=== PATIENT | male | born 2000 | race Caucasian/White ===

== ENCOUNTER 2018-12-23 09:45 | Inpatient (IN) | payer BC ==
[~2018-12-23] VITALS: Ht 180.3 cm; Wt 70.5 kg
[2018-12-23] MEDS ORDERED: AMOXICILLIN500 M1 PO (10:05)
[2018-12-23] MEDS ORDERED: FOLIC ACID0.8 MG PO (10:06)
[2018-12-23 10:41] LABS: BASOPHILS 0.3 % (0-2); EOSINOPHILS 0.9 % (0-7); HEMATOCRIT 39.7 % (42.0-54.0); HEMOGLOBIN 14.1 g/dL (13.5-17.5); IMMATURE GRANULOCYTES 0.3 % (0-5); LYMPHOCYTES 19.7 % (15-50); MCHC 35.5 g/dL (31.0-37.0); MCV 90.2 fL (80.0-100.0); MEAN PLATELET VOLUME 9.2 fL (7.4-10.4); MONOCYTES 5.7 % (2-11); NEUTROPHILS 73.1 % (40-80); PLATELET COUNT 175 10x3/uL (130-400); WBC 7.8 10x3/uL (4.8-10.8)
[2018-12-23 11:00] LABS: ALBUMIN 4.3 g/dL (3.4-5.0); ALKALINE PHOSPHATASE 49 U/L (46-116); ALT (SGPT) 10 U/L (10-68); AMYLASE - SERUM 45 U/L (25-115); BILIRUBIN - TOTAL 5.04 mg/dL (0.2-1.3); CALC OSMOLALITY 283 mosm/kg (275-300); CALCIUM 8.4 mg/dL (8.5-10.1); CARBON DIOXIDE 25.6 mmol/L (21.0-32.0); CHLORIDE - SERUM 104 mmol/L (98-107); CREATININE - SERUM 0.8 mg/dL (0.6-1.3); GLUCOSE 132 mg/dL (74-106); LIPASE 106 U/L (73-393); POTASSIUM - SERUM 3.7 mmol/L (3.5-5.1); SODIUM 141 mmol/L (136-145); UREA NITROGEN 14 mg/dL (7-18); eGFR NON AFRICAN AMERICAN > 90 mL/min (90-120)
[2018-12-23 11:03] LABS: APPEARANCE CLEAR (CLEAR); BILIRUBIN 1+ (NEGATIVE); COLOR DK YELLOW (YELLOW); GLUCOSE NEGATIVE (NEGATIVE); KETONE NEGATIVE (NEGATIVE); NITRITE NEGATIVE (NEGATIVE); PROTEIN NEGATIVE (NEGATIVE)
[2018-12-23 11:05] LABS: BACTERIA NONE SEEN /hpf (NONE SEEN); EPITHELIAL CELLS RARE /hpf (0-5); RED CELLS - URINE RARE /hpf (0-5); WHITE CELLS - URINE RARE /hpf (0-5)
--- NOTE | 2018-12-23 13:17 | NUR ---
RECEIVED REPORT FROM GONZALEZ RUEDA IN ER AT 1245. ARRIVED TO ROOM AT 1315. ASSUMED CARE. PATIENT'S FATHER STATED, "HE WON'T SIGN THE CONSENT FOR SURGERY BECAUSE IT ONLY SAY APPENDECTOMY. HE WON'T HAVE THAT DONE UNLESS THEY DO THE SPLENECTOMY AT THE SAME TIME."
[2018-12-23] MEDS ORDERED: HYDROCODON-ACE1 EAC7 PO (15:50)
[2018-12-23 16:39] VITALS: BP 138/46
[2018-12-23 16:41] VITALS: BP 132/69
[2018-12-23 20:03] VITALS: Ht 180.3 cm; Wt 70.5 kg
--- NOTE | 2018-12-23 20:19 | NUR ---
REMOVED IV IN RIGHT AC WITH CATHETER TIP INTACT.
--- NOTE | 2018-12-23 20:19 | NUR ---
DISCHARGE INSTRUCTIONS GIVEN. PRESCRIPTION FOR PAIN MED GIVEN.
--- NOTE | 2018-12-23 20:38 | NUR ---
PT ESCORTED TO MAIN ENTRANCE VIA WHEELCHAIR. ASSISTED INTO AWAITING VEHICLE.
--- NOTE | 2018-12-28 17:04 | MORECARE ---
CASE MANAGEMENT DISCHARGE SUMMARY PATIENT: PABLO BONILLA UNIT: [id number] ADM DATE: 12/23/18 AGE: 18 : 98 SEX: M ROOM/BED: D.2230 AUTHOR: ROBBIE ORTIZ PHYSICIAN: REFERRING PHYSICIAN: RONAK GABRIEL MD DATE OF SERVICE: 12/28/18 Discharge Plan Patient Name: PABLO BONILLA [facility] [facility] 2000 Planned Disposition: Anticipated Discharge Date: Discharge Date: 12/23/2018 Expected LOS: 0 Initial Reviewer: [email or web address] Initial Review Date: 12/28/2018 Generated: 12/28/18 6:04 pm Patient Name: PABLO BONILLA Page [id number] at 1704 All edits/amendments must be made on the electronic document DICTATION DATE: 12/28/181702 SURVEILLANCE SYSTEMS ENGINEER: TACOS 12/28/181702 RPT#: [id number] DC DATE:12/23/18 STATUS: DIS IN [facility] [address] [place] [address] END OF REPORT
== END 2018-12-23 20:38 | disposition home or self-care (01) | DRG 343 ==
LOC: D.ER 09:45 → D.MS 11:20 → D.EDHOLD 11:20 → D.MS 11:40
PROVIDERS: Family Medicine; Surgery; ADMIT Family Medicine
PROC: 0DTJ4ZZ Resection of Appendix, Percutaneous Endoscopic Approach (ICD-10-PCS; principal; 2018-12-23 15:00)
DX: K35.30 Acute appendicitis with localized peritonitis, without perforation or gangrene (principal); D58.0 Hereditary spherocytosis; R16.1 Splenomegaly, not elsewhere classified

== ENCOUNTER 2019-01-09 12:33 | Emergency (ER) | payer BC ==
[~2019-01-09] VITALS: Ht 180.3 cm; Wt 63.5 kg
[~2019-01-09 12:33] MED LIST: AMOXICILLIN500 M1 PO; FOLIC ACID0.8 MG PO; HYDROCODON-ACE1 EAC7 PO
[2019-01-09 12:43] VITALS: Ht 180.3 cm; Wt 63.5 kg
[2019-01-09 13:19] LABS: ALBUMIN 4.4 g/dL (3.4-5.0); ALKALINE PHOSPHATASE 45 U/L (46-116); ALT (SGPT) 12 U/L (10-68); BASOPHILS 0.4 % (0-2); BILIRUBIN - TOTAL 2.85 mg/dL (0.2-1.3); CALC OSMOLALITY 276 mosm/kg (275-300); CALCIUM 8.8 mg/dL (8.5-10.1); CARBON DIOXIDE 27.3 mmol/L (21.0-32.0); CHLORIDE - SERUM 104 mmol/L (98-107); CREATININE - SERUM 0.8 mg/dL (0.6-1.3); EOSINOPHILS 0.9 % (0-7); GLUCOSE 89 mg/dL (74-106); HEMOGLOBIN 13.5 g/dL (13.5-17.5); IMMATURE GRANULOCYTES 0.4 % (0-5); LYMPHOCYTES 19.8 % (15-50); MCH 31.1 pg (26.0-34.0); MCHC 34.6 g/dL (31.0-37.0); MCV 89.9 fL (80.0-100.0); MEAN PLATELET VOLUME 9.2 fL (7.4-10.4); MONOCYTES 4.7 % (2-11); NEUTROPHILS 73.8 % (40-80); POTASSIUM - SERUM 3.6 mmol/L (3.5-5.1); PROTEIN - SERUM 7.2 g/dL (6.4-8.2); RBC 4.34 10x6/uL (4.20-6.10); RDW 18.9 % (11.5-14.5); SODIUM 139 mmol/L (136-145); UREA NITROGEN 12 mg/dL (7-18); WBC 7.4 10x3/uL (4.8-10.8); eGFR NON AFRICAN AMERICAN > 90 mL/min (90-120)
[2019-01-09 13:33] LABS: PLATELET COUNT 222 10x3/uL (130-400)
[2019-01-09 17:33] LABS: APPEARANCE CLEAR (CLEAR); BILIRUBIN NEGATIVE (NEGATIVE); COLOR YELLOW (YELLOW); GLUCOSE NEGATIVE (NEGATIVE); KETONE NEGATIVE (NEGATIVE); NITRITE NEGATIVE (NEGATIVE); PROTEIN NEGATIVE (NEGATIVE); SPECIFIC GRAVITY 1.015 (1.005-1.020); UROBILINOGEN NORMAL (NORMAL)
[2019-01-09 18:44] VITALS: BP 124/60
== END 2019-01-09 18:34 | disposition home or self-care (01) ==
LOC: D.ER 12:33
PROVIDERS: Family Medicine
DX: R10.9 Unspecified abdominal pain (principal); D58.0 Hereditary spherocytosis; Z98.890 Other specified postprocedural states

== ENCOUNTER 2019-02-06 07:13 | Inpatient (IN) | payer BC ==
[~2019-02-06] VITALS: Ht 177.8 cm; Wt 60.0 kg
[~2019-02-06 07:13] MED LIST changes: +IBUPROFEN400 MG PO
[2019-02-06 08:08] VITALS: BP 120/67; BMI 20.4
[2019-02-06 17:00] VITALS: BP 138/68
[2019-02-06 17:38] VITALS: BP 134/88; Ht 177.8 cm; Wt 60.0 kg
[2019-02-06 18:00] VITALS: BP 134/88; BP 138/82
[2019-02-06 19:00] VITALS: BP 136/80
[2019-02-06 23:00] VITALS: BP 140/70
[2019-02-07] VITALS (7 sets, daily range): BP systolic 115–134; BP diastolic 62–88
[2019-02-07 05:22] LABS: HEMATOCRIT 41.3 % (42.0-54.0); HEMOGLOBIN 13.9 g/dL (13.5-17.5); MCH 31.2 pg (26.0-34.0); MCHC 33.7 g/dL (31.0-37.0); MCV 92.6 fL (80.0-100.0); MEAN PLATELET VOLUME 10.2 fL (7.4-10.4); PLATELET COUNT 253 10x3/uL (130-400); RBC 4.46 10x6/uL (4.20-6.10); WBC 20.7 10x3/uL (4.8-10.8)
[2019-02-07 06:26] LABS: ALBUMIN 3.5 g/dL (3.4-5.0); ALKALINE PHOSPHATASE 36 U/L (46-116); ALT (SGPT) 43 U/L (10-68); BILIRUBIN - TOTAL 3.01 mg/dL (0.2-1.3); CALC OSMOLALITY 281 mosm/kg (275-300); CALCIUM 8.1 mg/dL (8.5-10.1); CHLORIDE - SERUM 104 mmol/L (98-107); CREATININE - SERUM 0.7 mg/dL (0.6-1.3); GLUCOSE 132 mg/dL (74-106); MAGNESIUM - SERUM 1.4 mg/dL (1.8-2.4); PHOSPHOROUS 3.8 mg/dL (2.5-4.9); POTASSIUM - SERUM 3.5 mmol/L (3.5-5.1); PROTEIN - SERUM 6.1 g/dL (6.4-8.2); SODIUM 141 mmol/L (136-145); UREA NITROGEN 10 mg/dL (7-18); eGFR NON AFRICAN AMERICAN > 90 mL/min (90-120)
[2019-02-07 10:20] LABS: LYMPHOCYTES 2 % (15-50); MONOCYTES 3 % (2-11); NEUTROPHILS 82 % (40-80); PLATELET ESTIMATE NORMAL
[2019-02-08 05:00] VITALS: BP 110/63
[2019-02-08 09:02] LABS: BASOPHILS 0.1 % (0-2); EOSINOPHILS 0.2 % (0-7); HEMATOCRIT 37.5 % (42.0-54.0); HEMOGLOBIN 12.6 g/dL (13.5-17.5); IMMATURE GRANULOCYTES 0.2 % (0-5); LYMPHOCYTES 3.1 % (15-50); MCH 31.7 pg (26.0-34.0); MCHC 33.6 g/dL (31.0-37.0); MCV 94.2 fL (80.0-100.0); MEAN PLATELET VOLUME 9.5 fL (7.4-10.4); MONOCYTES 12.3 % (2-11); NEUTROPHILS 84.1 % (40-80); RBC 3.98 10x6/uL (4.20-6.10); RDW 18.8 % (11.5-14.5); WBC 17.3 10x3/uL (4.8-10.8)
[2019-02-08 09:05] LABS: PLATELET COUNT 319 10x3/uL (130-400)
[2019-02-08 09:11] LABS: CALC OSMOLALITY 277 mosm/kg (275-300); CALCIUM 8.8 mg/dL (8.5-10.1); CARBON DIOXIDE 29.5 mmol/L (21.0-32.0); CHLORIDE - SERUM 104 mmol/L (98-107); CREATININE - SERUM 0.8 mg/dL (0.6-1.3); GLUCOSE 101 mg/dL (74-106); POTASSIUM - SERUM 3.7 mmol/L (3.5-5.1); SODIUM 139 mmol/L (136-145); UREA NITROGEN 12 mg/dL (7-18); eGFR NON AFRICAN AMERICAN > 90 mL/min (90-120)
[2019-02-08 09:12] VITALS: BP 121/55
[2019-02-08 12:53] VITALS: BP 127/74
[2019-02-08 18:22] VITALS: BP 130/76
[2019-02-08 20:00] VITALS: BP 133/79
[2019-02-09] VITALS: BP 125/68
[2019-02-09 05:00] VITALS: BP 128/79
[2019-02-09 08:00] VITALS: BP 130/72
[2019-02-09] MEDS ORDERED: HYDROCODON-ACE1 EAC7 PO (10:10)
--- NOTE | 2019-02-09 15:54 | MORECARE ---
CASE MANAGEMENT DISCHARGE SUMMARY PATIENT: PABLO BONILLA UNIT: [id number] ADM DATE: 02/06/19 AGE: 18 : [birth year] SEX: M ROOM/BED: D.1201 AUTHOR: ANGEL,DOC PHYSICIAN: REFERRING PHYSICIAN: RILEY ALDRIDGE MD DATE OF SERVICE: 02/09/19 Discharge Plan Patient Name: PABLO BONILLA Facility: [facility]:[place] : 2000 Planned Disposition: Home Anticipated Discharge Date: 02/09/19 Discharge Date: Expected LOS: 3 Initial Reviewer: [email or web address] Initial Review Date: 02/09/2019 Generated: 02/09/19 4:54 pm Comments DCP- Discharge Planning Updated by [email or web address]: Esperanza Obregon on 02/09/19 2:[address] Patient Name: PABLO BONILLA Admission Status: Elective Accout number: [id number] Admission Date: 02-06-2019 : 2000 Admission Diagnosis: Attending: RILEY ALDRIDGE Current LOS: 3 Anticipated DC Date: 02-09-2019 Planned Disposition: Home Primary Insurance: [employer] OUT OF STATE Discharge Planning Comments: AFTER OBTAINING CONSENT, CM MET WITH PATIENT WHILE FEMALE VISITOR IN ROOM. PATIENT STATES HIS PLAN IS TO DISCHARGE TO HIS S HOUSE, [place], . STATES HOME ENVIRONMENT IS SAFE. DENIES ANY DISCHARGE PLANNING / NEEDS. STATES HIS UNCLE WILL TRANSPORT HIM HOME. CM WILL CONTINUE TO FOLLOW AND ASSIST NEEDED WITH DISCHARGE PLANNING / NEEDS. Trout Farmer: Esperanza Obregon DCPIA - Discharge Planning Initial Assessment Updated by [email or web address]: Esperanza Obregon on 02/09/19 3:49 pm * Is the patient Alert and Oriented? Yes * How many steps to enter\\exit or inside your home? "FEW" * PCP MARYELLEN TIJERINA * Pharmacy [facility] * Preadmission Environment Home with Family * ADLs Independent * Equipment None * List name and contact numbers for known caregivers / representatives who currently or will assist patient after discharge: UNCLE AGUERO, * Verbal permission to speak to the caregivers and representatives has been obtained from the patient. Yes * Community resources currently utilized None * Additional services required to return to the preadmission environment? No * Can the patient safely return to the preadmission environment? Yes * Has this patient been hospitalized within the prior 30 days at any hospital? No Patient Name: PABLO BONILLA Page [phone] at 1554 All edits/amendments must be made on the electronic document DICTATION DATE: 02/09/191552 FURNACE UTILITY OPERATOR: TACOS 02/09/191552 RPT#: [id number] DC DATE: STATUS: ADM IN [facility] [address] [place] [address] END OF REPORT
--- NOTE | 2019-02-10 13:04 | MORECARE ---
CASE MANAGEMENT DISCHARGE SUMMARY PATIENT: PABLO BONILLA UNIT: [id number] ADM DATE: 02/06/19 AGE: 18 : [birth year] SEX: M ROOM/BED: D.1201 AUTHOR: ANGEL,DOC PHYSICIAN: REFERRING PHYSICIAN: RILEY ALDRIDGE MD DATE OF SERVICE: 02/10/19 Discharge Plan Patient Name: PABLO BONILLA Facility: [facility]:[place] : 2000 Planned Disposition: Home Anticipated Discharge Date: 02/09/19 Discharge Date: 02/09/2019 Expected LOS: 3 Initial Reviewer: [email or web address] Initial Review Date: 02/09/2019 Generated: 02/10/19 2:04 pm Comments DCP- Discharge Planning Updated by [email or web address]: Esperanza Obregon on 02/09/19 2:[address] Patient Name: PABLO BONILLA Admission Status: Elective Accout number: [id number] Admission Date: 02-06-2019 : 2000 Admission Diagnosis: Attending: RILEY ALDRIDGE Current LOS: 3 Anticipated DC Date: 02-09-2019 Planned Disposition: Home Primary Insurance: [employer] OUT OF STATE Discharge Planning Comments: AFTER OBTAINING CONSENT, CM MET WITH PATIENT WHILE FEMALE VISITOR IN ROOM. PATIENT STATES HIS PLAN IS TO DISCHARGE TO HIS S HOUSE, [place], . STATES HOME ENVIRONMENT IS SAFE. DENIES ANY DISCHARGE PLANNING / NEEDS. STATES HIS UNCLE WILL TRANSPORT HIM HOME. CM WILL CONTINUE TO FOLLOW AND ASSIST NEEDED WITH DISCHARGE PLANNING / NEEDS. Poker Manager: Esperanza Obregon DCPIA - Discharge Planning Initial Assessment Updated by [email or web address]: Esperanza Obregon on 02/09/19 3:49 pm * Is the patient Alert and Oriented? Yes * How many steps to enter\\exit or inside your home? "FEW" * PCP MARYELLEN TIJERINA * Pharmacy [facility] * Preadmission Environment Home with Family * ADLs Independent * Equipment None * List name and contact numbers for known caregivers / representatives who currently or will assist patient after discharge: UNCLE AGUERO, * Verbal permission to speak to the caregivers and representatives has been obtained from the patient. Yes * Community resources currently utilized None * Additional services required to return to the preadmission environment? No * Can the patient safely return to the preadmission environment? Yes * Has this patient been hospitalized within the prior 30 days at any hospital? No Last DP export: 02/09/19 2:54 p Patient Name: PABLO BONILLA Page [phone] at 1304 All edits/amendments must be made on the electronic document DICTATION DATE: 02/10/19 130 PROCESSING CLERK: TACOS 02/10/19 1303 RPT#: [id number] DC DATE:02/09/19 STATUS: DIS IN [facility] [address] [place] [address] END OF REPORT
--- NOTE | 2019-02-16 16:42 | OP ---
PATIENT NAME: PABLO BONILLA MEDICAL RECORD: [id number] :[birth year] LOCATION:D.M3 D.1201 ADMISSION DATE:02/06/19 SURGEON: BREEZY MATHUR MD DATE OF OPERATION: 02/06/2019 PREOPERATIVE DIAGNOSES: 1. Spherocytosis. 2. Hepatomegaly. POSTOPERATIVE DIAGNOSES: 1. Spherocytosis. 2. Hepatomegaly. PROCEDURES: 1. Laparoscopic cholecystectomy (surgeon). 2. Laparoscopic splenectomy (offset press assistant). I assisted Dr. Dang with the laparoscopic splenectomy. I was then the surgeon for the laparoscopic cholecystectomy and was assisted by Lauren Shearer APN. The risks, possible complications, and alternatives to the procedure were explained to the patient. He elected to proceed. DESCRIPTION OF PROCEDURE: With regard to the laparoscopic splenectomy, my involvement in the procedure included retraction, some suctioning, some firing of the linear cutting stapler, irrigation and aspiration, some dissection of the spleen off the diaphragm and the retroperitoneum with the Harmonic scalpel, stapling across vascular structures with the linear cutting stapler (Endo-SADIQ), some assistance with placing the spleen in the bag retrieval device, assistance with creating the working port where the Amilcar retractor was, and assistance with removing portions of the spleen. With regard to the laparoscopic cholecystectomy, I utilized the existing 5-mm trocars. Additionally, at the site where the working port had been, I also placed a 5-mm trocar lateral to the muscular closure. We then rotated the patient to the left. I irrigated with normal saline and aspirated. The gallbladder was grasped and retracted cephalad. The infundibulum was grasped and retracted laterally. Blunt dissection was begun on the triangle of Calot. One cystic artery and one cystic duct were identified. These were clipped multiply and divided between clips. The gallbladder was then excised from its bed in the liver. There was no bleeding even at low pressure of 8. The gallbladder was then withdrawn through one of the 5-mm sites. I then placed a 5-mm trocar again. I irrigated with normal saline and then with hydrogen peroxide. There was no bleeding. All trocars were removed and the abdomen was desufflated. The 5-mm trocar site at the working port site in the left lower quadrant was closed with horizontal mattresses #1 Vicryl. The working port site was closed with interrupted 3-0 Vicryl for the deep dermis as well as running intracuticular 3-0 Vicryl for the skin. The other trocar sites were closed with interrupted intracuticular 3-0 Vicryls. Benzoin and Steri-Strips were applied. OPERATIVE REPORT [id number] PABLO BONILLA The patient was then extubated and conveyed to the postanesthesia care unit, where he was in stable condition. The indication for the cholecystectomy was that all people with hereditary spherocytosis will develop gallstones at sometime in the future, so it is almost mandatory that a cholecystectomy should be performed at the time of the splenectomy. I did not need to perform a liver biopsy as the liver appeared normal and was not enlarged and there did not appear to be fatty infiltration of the liver. TRANSINT:[id number] Voice Confirmation ID: [id number] DOCUMENT ID: [id number] BREEZY MATHUR MD at 1642 CC: YAHIR TIJERINA [id number] DICTATION DATE: 02/06/19 1537 FEDERAL AGENT: 02/06/19 1819 DIS IN 02/09/19 [facility] [address] [place] [address]
== END 2019-02-09 19:54 | disposition home or self-care (01) | DRG 801 ==
LOC: D.OPS 07:13 → D.PAN 08:00 → D.OPS 08:00 → D.M3 15:33 → D.SDCHOLD 15:33 → D.ICU 17:02 → D.M3 02-07 13:40
PROVIDERS: Surgery; ADMIT Surgery; ATTEND Surgery
PROC: 0FT44ZZ Resection of Gallbladder, Percutaneous Endoscopic Approach (ICD-10-PCS; principal; 2019-02-06 10:45)
PROC: 07TP4ZZ Resection of Spleen, Percutaneous Endoscopic Approach (ICD-10-PCS; 2019-02-06 10:45)
DX: D58.0 Hereditary spherocytosis (principal); R16.0 Hepatomegaly, not elsewhere classified